=== PATIENT | female | born 1995 | race Caucasian/White ===

== ENCOUNTER 2024-12-30 09:52 | Emergency (ER) | payer OTHER, SELFPAY ==
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
--- OUTSIDE RECORDS SUMMARY | 2024-11-27 15:40 | XMS_ITS | Encounter Summary ---
Author Organization [facility] Address [address] [place] [address] Care Team Providers Care Yarn Finisher Name Role Phone Elsewhere, Pcp Primary Care Provider Unavailabl e Reason for Visit * Reason Comments Med Refill Patient states that she takes 100 mg Progestrone suppositories in her previous pregnancies to prevent miscarriage. She has recently moved here from [place] and is struggling to set up care. 4weeks and 4 days . Encounter Details Date Type Department Care Team ([facility] st Contact Info) Description 11/27/2024 3:40 PM CDT - 11/27/2024 5:03 PM CDT Emergency [facility] [address] [place] [address] [phone] Sofya Mckay, SADIE, C.N.P. [address] [place] [address] [phone] Issue Renewal Prescription (Primary Dx) Discharge Disposition: Home or Self Care Social History Tobacco Use Types Packs/Day Years Used Date Smoking Tobacco: Former Cigarettes Passive Smoke Exposure: Past Smokeless Tobacco: Never Tobacco Cessation:Counseling Given: Not Answered Alcohol Use Standard Drinks/Week Comments Yes 0 (1 standard drink = 0.6 oz pur e alcohol) Dental Answer Date Recorded Dental: Regular Dentist Unknown 05/31/20 24 Comments Yes Sex and Gender Information Value Date Recorded Sex Assigned at Not on file Legal Sex Female 12:37 PM CDT Gender Identity Not on file Sexual Orientation Not on file documented as of this encounter Last Filed Vital Signs Vital Sign Reading Time Taken Comments Blood Pressure 132/73 11/27/2024 3:45 PM CDT Pulse 96 11/27/2024 3:43 PM CDT Temperature 36.4 C (97.5 F) 11/27/2024 3:43 PM CDT Respiratory Rate 19 11/27/2024 3:43 PM CDT Oxygen Saturation 97% 11/27/2024 3:43 PM CDT Inhaled Oxygen Concentration - - Weight 84.9 kg (187 lb 3.2 oz) 11/27/2024 3:39 P M CDT Height - - Body Mass Index - - documented in this encounter Discharge Instructions * Discharge Instructions* Sofya Mckay APRN, C.N.P. - 11/27/2024 4:35 PM CDT [facility] discussed and set up today in clinic your appointment is scheduled for 11/29/2024 at 3:30 p.m. documented in this encounter Medications at Time of Discharge lisdexamfetamine (Vyvanse) 60 mg capsule take 1 capsule by mouth once a day in the morning. 11/22/2024 PNV 24-espw-zujdzotgi ate-dha 29 mg iron-1 mg -350 mg Take 1 tablet by mouth daily. 06/16/2019 documented as of this encounter Progress Notes * Sofya Mckay APRN, C.N.P. - 11/27/2024 4:48 PM CDT SUBJECTIVE CHIEF COMPLAINT / REASON FOR VISIT Med Refill (Patient states that she takes 100 mg Progestrone suppositories in her previous pregnancies to prevent miscarriage. She has recently moved here from [place] and is struggling to set up care. 4weeks and 4 days . ) HISTORY OF PRESENT ILLNESS Concha Franklin is a 29 y.o. female who presents for evaluation of progesterone suppositories to sustain . Patient has done 5-6 home test. All of which have come back positive. Patient has had history of 6 miscarriages 3 live births ages 5, 4, and 2 year old. Reports neededto have progesterone suppositories for the entire 1st trimester to sustain pregnancies. Presents tourgent care today as she is not able to get into her 1st OB appointment until January 02. In an attempt to receive a prescription for progesterone suppositories. Portions of the patient's history were reviewed and updated as appropriate: Allergies, current medications, medical history. REVIEW OF SYSTEMS Pertinent items are noted in HPI; all other review of systems was negative. OBJECTIVE VITAL SIGNS BP 132/73 Pulse 96 Temp 36.4 ??C (Temporal) Resp 19 Wt 84.9 kg LMP 10/26/2024 (Exact Date) SpO2 97% No PHYSICAL EXAMINATION Vitals and nursing note reviewed. Constitutional General: She is not in acute distress. Appearance: Normal appearance. HENT Head: Normocephalic. Cardiovascular Rate and Rhythm: Normal rate. Musculoskeletal General: Normal range of motion. Skin General: Skin is warm and dry. Neurological Mental Status: She is alert. Psychiatric Mood and Affect: Mood normal. ASSESSMENT / PLAN #1 Issue Renewal Prescription Pleasant 29-year-old female presenting for quantitative progesterone level in the hopes of receiving a prescription for compounded progesterone suppository to sustain . Informed patient that unfortunately this is outside the scope of an urgent care walk-in clinic. We did obtain a release of information for [facility] in [place]. Attempted to receive information. I did speak with Dr. Chowdhury's nurse Tiara who states Dr. Chowdhury did prescribe compounded progesterone suppositories when the quantitative progesterone fell below 20 4 the entire 1st trimester. In clinic today we did set up an appointment with [facility] here in [place] for 11/29/2024 at 3:30 p.m. with [facility] nurse practitioner Faustina Harris. Patient is receptive andappreciative. No further questions or concerns prior to discharge. Follow up as discussed and reviewed in AVS. Discharged from [facility] in stable condition. Sofya Mckay APRN, C.N.P. 11/27/24 [id number] documented in this encounter Plan of Treatment Not on file documented as of this encounter Visit Diagnoses Diagnosis Issue Renewal Prescription- Primary documented in this encounter Care Teams Yarn Finisher Relationship Specialty Start Date End Date Elsewhere, Pcp PCP - General Internal Medicine 11/27/24 documented as of this encounter
--- OUTSIDE RECORDS SUMMARY | 2024-11-28 13:30 | XMS_ITS | Encounter Summary ---
Author Organization [facility] IT developersW[facility] CenterCultureMap Address [address], [place] [address] Care Team Providers Care Motion Picture Narrator Name Role Phone Needs Pcp, Assignment Primary Care Provider [phone] Reason for Visit * Reason Comments CONSULT Encounter Details Date Type Department Care Team (Late st Contact Info) Description 11/28/2024 1:30 PM CDT Office Visit [place] [id number] Obstetrics/Gynecolog y [address] [place] [place] [address] Edie Lamb MD [address] [facility] [address] [place], [place] [id number] Bleeding in early (Primary Dx); History of miscarriage, currently Social History Tobacco Use Types Packs/Day Years Used Date Smoking Tobacco: Former Cigarettes Tobacco Cessation:Counseling Given: Not Answered Alcohol Use Standard Drinks/Week Comments Not Currently 0 (1 standard drink = 0.6 oz pur e alcohol) PHQ-2 Answer Date Recorded PHQ-2 Score 0 11/28/2024 Comments Yes Sex and Gender Information Value Date Recorded Sex Assigned at Not on file Legal Sex Female 9:33 AM CDT Gender Identity Not on file Sexual Orientation Not on file documented as of this encounter Last Filed Vital Signs Vital Sign Reading Time Taken Comments Blood Pressure 107/67 11/28/2024 1:30 PM CDT Pulse 80 11/28/2024 1:30 PM CDT Temperature - - Respiratory Rate - - Oxygen Saturation - - Inhaled Oxygen Concentration - - Weight 84.6 kg (186 lb 9.6 oz) 11/28/2024 1:30 P M CDT Height - - Body Mass Index - - documented in this encounter Patient Instructions * Patient Instructions* Edie Lamb MD - 11/28/2024 1:30 PM CDT Woody Murphy speaking with you at your appointment today! Recommendations: Take vitamin daily. Labs today - HCG, blood type, progesterone level Pending HCG results, either repeat HCG in 2-3 days or proceed with ultrasound as soon as able. Once viability confirmed, initiate progesterone if desired. Once dating confirmed, return for complete OB intake visit at 10 weeks. Please contact the clinic prior to the above for return of bleeding, severe pain or related concerns, or as helpful. I anticipate that your results should return in 2-3 days. Your results will be forwarded to your Mychart when available. If your Mychart is not active or pending at that time, we will reach out by telephone. Please contact me with any questions -- [phone]. Mike wishesEdie MD 7:45 PM 11/28/2024 documented in this encounter Progress Notes * Edie Lamb MD - 11/28/2024 1:30 PM CDT [facility] Obstetrics and Gynecology New Patient Visit Concha Franklin [id number] Reason for visit: Bleeding in early HPI: Concha Franklin is a 29 y.o. who presents to [facility] for early confirmation complicated by recent light vaginal bleeding. Patient is a new patient to [facility] the past 11 months. Wanting to establish care today with Jacky [facility]. Accompanied today by , Kilo, and 3 children. Using natural family planning for contraception. Cycles are reportedly irregular, but well tracked. LMP 10/26/24. Certain LMP. [place] different this past week thus took home test 3 days ago - positive x multiple tests. Couple was not planning , yet accepting. Light vaginal spotting noted this past weekend x 1 day, but without additional bleeding in past 3 days. Believes she is Rh positive, but no records available. 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 Started on early vaginal progesterone suppository by outsideOB provider in last 3 pregnancies, resulting in successful term vaginal delivery with each. Given complex history of miscarriages and spotting, requesting early start of progesterone this upon confirmation of and progesterone level check today. Per report, has used progesterone vaginal suppositories 100 mg nightly in first trimester with previous pregnancies. Past medical history otherwise updated in [facility] with patient assistance. [facility]. 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 LMP Patient's last menstrual period was 10/26/2024 (exact date). STI H/o: Denied Pap smear: Uncertain Monogamous with partner, . Contraception: Natural family planning The medical, surgical, social and family histories were reviewed and upated. Meds: lisdexamfetamine (VYVANSE) 60 MG capsule, Take 1 Capsule (60 mg) by mouth every morning., Disp: , Rfl: vitamin-ferrous fumarate-folic acid (PRENATALPLUS) 27-1 MG tablet, Take 1 Tablet by mouth daily., Disp: , Rfl: No current facility-administered medications on file as of 11/28/2024. Review of Systems Complete Review of Systems is negative, unless noted in HPI Exam: BP 107/67 (BP Location: Right Arm, BP Cuff Size: Regular - Long) Pulse 80 Wt 186 lb 9.6 oz (84.6 kg) LMP 10/26/2024 (Exact Date) Gen: pleasant female, A&Ox3, NAD, responds to questions appropriately Psych: mood stable. HEENT: grossly unremarkable. Abd: soft, non-distended, non-tender. Pelvic: deferred Labs: None available No outside records available today. Patient previously cared for at [facility] in [place], [place]. Record release signed for record transfer. Imaging: Not applicable Assessment: Concha Franklin is a 29 y.o. at 4w5d by LMP, yet irregular menses, with early spotting. Reported historical Rh positive status, will confirm. Plan: Labs today, HCG, blood type, progesterone level per patient request. Discussed with patient that pending HCG level we will either recommend serial HCGs (if initial HCG is low) and/or ultrasound once gestational age suspected to be greater than 6-8 weeks. Patient requesting prescription for vaginal progesterone today. Discussed that we can consider thisafter has been confirmed. Once viability confirmed return to clinic for complete OB intake at approximately 10 weeks. Sooner if concerns arise. Patient declines additional questions today. Bleeding precautions reviewed. 30 minutes spent with patient in history taking, record and chart review, counseling, examination, treatment planning and documentation, >50% in counseling. Edie Lamb MD 11/28/2024, 2:13 PM documented in this encounter Plan of Treatment Upcoming Encounters Date Type Department Care Team (Late st Contact Info) Description 01/02/2025 11:00 AM CDT Appointment [place] [facility] Obstetrics/Gynecology [facility] [place] [place] [address] Justin Major MD [address] [facility] [address] [place] [address] documented as of this encounter Results * Progesterone Adult (11/28/2024 2:34 PM CDT) Progesterone, Adult 27.5 ng/mL 11/29/2024 11:39 AM CDT [facility] DesignAD[facility] MEXICOIdentica Holdings [facility] Blood Venipuncture / Unknown 11/28/2024 2:34 PM CDT 11/28/2024 2:34 PM CDT [facility] - 11/29/2024 11:39 AM CDT Expected values for menstruating females Follicular Phase: <0.1-0.3 ng/mL Luteal Phase: 1.2-15.9 ng/mL Expected values for females 1st Trimester (4-12 weeks): 2.8-147.3 ng/mL 2nd Trimester (13-24 weeks): 22.5-95.3 ng/mL 3rd Trimester (25-36 weeks): 27.9-242.5 ng/mL Edie Lamb MD LAB_1 Final Result Performing Organization Address [facility] Co de Phone Number [facility] [address] * Blood Type (11/28/2024 2:34 PM CDT) ABO A 11/28/2024 8:56 PM CDT [facility] Positive 11/28/2024 8:56 PM CDT [facility] Blood Venipuncture / Unknown 11/28/2024 2:34 PM CDT 11/28/2024 2:34 PM CDT Edie Lamb MD LAB_1 Final Result Performing Organization Address [facility] de Phone Number [facility] [address] * (ABNORMAL) HCG, Quantitative, Serum (11/28/2024 2:34 PM CDT) HCG, Quantitative 176(H) <=4 mIU/mL 8:41 PM CDT [facility] Blood Venipuncture / Unknown 11/28/2024 2:34 PM CDT 11/28/2024 2:34 PM CDT Narrative [facility] - 11/28/2024 8:41 PM CDT Expected ranges Negative: <5 mIU/mL Indeterminate: 5-25 mIU/mL Positive: >25 mIU/mL Suggest repeat testing of indeterminate result in 72 hours. Edie Lamb MD LAB_1 Final Result Performing Organization Address [facility] Co de Phone Number [facility] [address] documented in this encounter Visit Diagnoses Diagnosis Bleeding in early - Primary Unspecified hemorrhage in early , unspecified as to episode of care History of miscarriage, currently documented in this encounter Care Teams Motion Picture Narrator Relationship Specialty Start Date End Date Needs Pcp, [place] [address] PCP - General 11/27/24 documented as of this encounter
--- OUTSIDE RECORDS SUMMARY | 2024-11-28 14:30 | XMS_ITS | Encounter Summary ---
Author Organization [facility] Address [address], [place] [address] Care Team Providers Care Hypercil Core Transformer Assembler Name Role Phone Needs Pcp, Assignment Primary Care Provider [phone]- [phone] Encounter Details Date Type Department Care Team (Late Contact Info) Description 11/28/2024 2:30 PM CDT Lab Visit [place] [facility] [address] [facility] [place] [address] Bleeding in early ; History of miscarriage, currently Social History Tobacco Use Types Packs/Day Years Used Date Smoking Tobacco: Former Cigarettes Alcohol Use Standard Drinks/Week Comments Not Currently 0 (1 standard drink = 0.6 oz pur e alcohol) PHQ-2 Answer Date Recorded PHQ-2 Score 0 11/28/2024 Comments Yes Sex and Gender Information Value Date Recorded Sex Assigned at Not on file Legal Sex Female 9:33 AM CDT Gender Identity Not on file Sexual Orientation Not on file documented as of this encounter Plan of Treatment Upcoming Encounters Date Type Department Care Team (Late Contact Info) Description 01/02/2025 11:00 AM CDT Appointment [place] Obstetrics/Gynecology [address] [facility] [place] [address] Justin Major MD [address] [facility] [address] [place] [address] documented as of this encounter Procedures Procedure Name Priority Date/Time Associated Diagnosis Comments PROGESTERONE ADULT Routine 11/28/2024 2: 34 PM CDT Bleeding in early History of miscarriage, currently BLOOD TYPE Routine 11/28/2024 2:34 PM CDT Bleeding in early History of miscarriage, currently HCG, QUANTITATIVE, SERUM Same Day 11/28/2024 2:34 PM CDT Bleeding in early History of miscarriage, currently documented in this encounter Results * Progesterone Adult (11/28/2024 2:34 PM CDT) Progesterone, Adult 27.5 ng/mL 11/29/2024 11:39 AM CDT [email or web address] Blood Venipuncture / Unknown 11/28/2024 2:34 PM CDT 11/28/2024 2:34 PM CDT Narrative [email or web address] [place] [facility] - 11/29/2024 11:39 AM CDT Expected values for menstruating females Follicular Phase: <0.1-0.3 ng/mL Luteal Phase: 1.2-15.9 ng/mL Expected values for females 1st Trimester (4-12 weeks): 2.8-147.3 ng/mL 2nd Trimester (13-24 weeks): 22.5-95.3 ng/mL 3rd Trimester (25-36 weeks): 27.9-242.5 ng/mL us Edie Lamb MD LAB_1 Final Result Performing Organization Address City/State/[facility] Co de Phone Number [facility] [address] * Blood Type (11/28/2024 2:34 PM CDT) ABO A 11/28/2024 8:56 PM CDT [facility] Positive 11/28/2024 8:56 PM CDT [facility] Blood Venipuncture / Unknown 11/28/2024 2:34 PM CDT 11/28/2024 2:34 PM CDT us Edie Lamb MD LAB_1 Final Result Performing Organization Address [facility] de Phone Number [facility] [address] [place], [place] [phone] [place] [address] * (ABNORMAL) HCG, Quantitative, Serum (11/28/2024 2:34 PM CDT) HCG, Quantitative 176(H) <=4 mIU/mL 025 8:41 PM CDT [facility] Blood Venipuncture / Unknown 11/28/2024 2:34 PM CDT 11/28/2024 2:34 PM CDT Narrative [facility] - 11/28/2024 8:41 PM CDT Expected ranges Negative: <5 mIU/mL Indeterminate: 5-25 mIU/mL Positive: >25 mIU/mL Suggest repeat testing of indeterminate result in 72 hours. us Edie Lamb MD LAB_1 Final Result Performing Organization Address [facility] Co de Phone Number [facility] [place], [place] [id number] [place] [address] documented in this encounter Visit Diagnoses Diagnosis Bleeding in early Unspecified hemorrhage in early , unspecified as to episode of care History of miscarriage, currently documented in this encounter Care Teams Hypercil Core Transformer Assembler Relationship Specialty Start Date [place] [address] PCP - General 11/27/24 documented as of this encounter
--- OUTSIDE RECORDS SUMMARY | 2024-11-30 08:40 | XMS_ITS | Encounter Summary ---
Author Organization [facility] Address [address], [place] [address] Care Team Providers Care Emergency Medicine Physician Assistant Name Role Phone Needs Pcp, Assignment Primary Care Provider [phone]- [phone] Encounter Details Date Type Department Care Team (Late Contact Info) Description 11/30/2024 8:40 AM CDT Lab Visit [place] [facility] [address] [place] [address] Bleeding in early ; History of miscarriage, [...] AM CDT Appointment [place] [facility] Obstetrics/Gynecology [facility] [facility] [place] [address] Justin Major MD [address] [facility] [address] [place] [address] documented as of this encounter Procedures Procedure Name Priority Date/Time Associated Diagnosis Comments HCG, QUANTITATIVE, SERUM Same Day 11/30/2024 8:47 AM CDT Bleeding in early History of miscarriage, currently documented in this encounter Results * (ABNORMAL) HCG, Quantitative, Serum (11/30/2024 8:47 AM CDT) HCG, Quantitative 297(H) <=4 mIU/mL 025 4:38 PM CDT [facility] Blood Venipuncture / Unknown 11/30/2024 8:47 AM CDT 11/30/2024 8:47 AM CDT Narrative [facility] - 11/30/2024 4:38 PM CDT Expected ranges Negative: <5 mIU/mL Indeterminate: 5-25 mIU/mL Positive: >25 mIU/mL Suggest repeat testing of indeterminate result in 72 hours. us Edie Lamb MD LAB_1 Final Result [facility] [address] [place], [place] [address] documented in this encounter Visit Diagnoses Diagnosis Bleeding in early Unspecified hemorrhage in early , unspecified as to episode of care History of miscarriage, currently documented in this encounter Care Teams Emergency Medicine Physician Assistant Relationship Specialty Start Date End [place] [address] PCP - General 11/27/24 documented as of this encounter
--- OUTSIDE RECORDS SUMMARY | 2024-12-06 07:20 | XMS_ITS | Encounter Summary ---
Author Organization [facility] Address [address], [place] [address] Care Team Providers Care Certified Fire Investigator Name Role Phone Needs Pcp, Assignment Primary Care Provider [phone]- [phone] Encounter Details Date Type Department Care Team (Late Contact Info) Description 12/06/2024 7:20 AM CDT Lab Visit [place] [facility] [address] [facility] [place] [address] Bleeding in early (Primary Dx); History of [...] AM CDT Appointment [place] [facility] Obstetrics/Gynecology [address] [facility] [place] [address] Justin Major MD [address] [facility] [address] [place] [address] documented as of this encounter Procedures Procedure Name Priority Date/Time Associated Diagnosis Comments EXTRA LIGHT GREEN TUBE Routine 12/06/2024 7:37 AM CDT Bleeding in early HCG, QUANTITATIVE, SERUM Same Day 12/06/2024 7:37 AM CDT Bleeding in early History of miscarriage, currently documented in this encounter Results * (ABNORMAL) HCG, Quantitative, Serum (12/06/2024 7:37 AM CDT) HCG, Quantitative 1,940(H) <=4 mIU/mL 12/06/2024 6:21 PM CDT [facility] Blood Venipuncture / Unknown 12/06/2024 7:37 AM CDT 12/06/2024 8:29 AM CDT Narrative [facility] - 12/06/2024 6:21 PM CDT Expected ranges Negative: <5 mIU/mL Indeterminate: 5-25 mIU/mL Positive: >25 mIU/mL Suggest repeat testing of indeterminate result in 72 hours. us Edie Lamb MD LAB_1 Final Result Performing Organization Address City/[facility]/ZIP Co de Phone Number [facility] [address] [place] [address], [facility] * Extra Light Green Tube (12/06/2024 7:37 AM CDT) Extra Light Green Tube Drawn Specimen will be held for 5 days 12/06/2024 9:00 AM CDT [place] [facility] Blood Venipuncture / Unknown 12/06/2024 7:37 AM CDT 12/06/2024 7:38 AM CDT us Edie Lamb MD LAB_1 Final Result [place] [facility] [address] [place] [address], [facility] documented in this encounter Visit Diagnoses Diagnosis Bleeding in early - Primary Unspecified hemorrhage in early , unspecified as to episode of care History of miscarriage, currently documented in this encounter Care Teams Certified Fire Investigator Relationship Specialty Start Date End Date Needs Pcp, [place] [address] PCP - General 11/27/24 documented as of this encounter
--- OUTSIDE RECORDS SUMMARY | 2024-12-13 13:15 | XMS_ITS | Encounter Summary ---
Author Organization [facility] Address [address], [place] [address] Care Team Providers Care Library Technician Name Role Phone Needs Pcp, Assignment Primary Care Provider [phone] Reason for Visit * Procedure/Equipment (Routine) - Incomplete Specialty Diagnoses / Procedures Referred By Contac t Referred To Contact Diagnoses Bleeding in early History of miscarriage, currently Procedures US OB <14 Weeks W EV Single Edie Lamb MD [facility] [address] [place] [address] Phone: tel: fax: Referral ID Status Reason Start Date Expiration Date V isits Requested Visits Authorized [id number] Incomplete 12/13/2024 03/14/2026 1 1 Encounter Details Date Type Department Care Team (Latest Contact Info) Description 12/13/2024 1:15 PM CDT Ancillary Procedure [place] [address] Ultrasound [facility]5 [facility] [place] [address] Edie Lamb MD [address] [facility] [address] [place], [place] [address] Bleeding in early ; History of miscarriage, [...] AM CDT Appointment [place] [facility]15 Obstetrics/Gynecology [address] [facility]. [place] [address] Justin Major MD [address] [facility] [address] [place] [address] documented as of this encounter Procedures Procedure Name Priority Date/Time Associated Diagnosis Comments US OB <14 WEEKS W EV SINGLE Routine 12/13/2024 1:43 PM CDT Bleeding in early History of miscarriage, currently documented in this encounter Results * US OB <14 Weeks W EV Single (12/13/2024 1:43 PM CDT) Anatomical Region Laterality Modality Pelvis Ultrasound 12/13/2024 1:13 PM CDT Impressions 12/13/2024 3:23 PM CDT 1. Single intrauterine fetus with cardiac activity, estimated gestational age 6w0d. 2. Small subchorionic hemorrhage measuring 12 x 8 x 7 mm. Narrative 12/13/2024 3:23 PM CDT COMPARISON: None TECHNIQUE: Transabdominal and transvaginal imaging was performed. FINDINGS: Gestational sac: Intrauterine gestational sac containing a single fetus and yolk sac. Small subchorionic hemorrhage measuring 12 x 8 x 7 mm Kinross-rump length measures 0.3 cm, corresponding to 6w0d gestational age. Gestational sac location: Normal SIMBA 08/08/2025. Embryonic/ cardiac activity is identified at 109 bpm. Right Ovary: Measures 2.7 x 2.0 x 2.4 cm and appears unremarkable. Left Ovary: Measures 3.5 x 2.0 x 2.3 cm and contains a probable corpus luteum. No suspicious adnexal masses. Free Fluid: No significant free fluid. GA by LMP Irregular: 6w6d GA by Prior US: n/a GA by today's US: 6w0d SIMBA by today's US: 08/08/2025 Procedure Note Gil Case MD - 12/13/2024 COMPARISON: None TECHNIQUE: Transabdominal and transvaginal imaging was performed. FINDINGS: Gestational sac: Intrauterine gestational sac containing a single fetusand yolk sac. Small subchorionic hemorrhage measuring 12 x 8 x 7 mm Kinross-rump length measures 0.3 cm, corresponding to 6w0d gestational age. Gestational sac location: Normal SIMBA 08/08/2025. Embryonic/ cardiac activity is identified at 109 bpm. Right Ovary: Measures 2.7 x 2.0 x 2.4 cm and appears unremarkable. Left Ovary: Measures 3.5 x 2.0 x 2.3 cm and contains a probable corpusluteum. No suspicious adnexal masses. Free Fluid: No significant free fluid. GA by LMP Irregular: 6w6d GA by Prior US: n/a GA by today's US: 6w0d SIMBA by today's US: 08/08/2025 IMPRESSION 1. Single intrauterine fetus with cardiac activity, estimated gestationalage 6w0d. 2. Small subchorionic hemorrhage measuring 12 x 8 x 7 mm. us Edie Lamb MD [facility] US Final Result documented in this encounter Visit Diagnoses Diagnosis Bleeding in early Unspecified hemorrhage in early , unspecified as to episode of care History of miscarriage, currently documented in this encounter Care Teams Library Technician Relationship Specialty Start Date End Date Needs Pcp, [place] [address] PCP - General 11/27/24 documented as of this encounter
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
--- OUTSIDE RECORDS SUMMARY | 2024-12-26 09:30 | XMS_ITS | Encounter Summary ---
[facility] Address [address], [place] [address] Care Team Providers Care Skin Grader Name Role Phone Needs Pcp, Assignment Primary Care Provider [phone] Reason for Visit * Procedure/Equipment (Routine) - Incomplete Specialty Diagnoses / Procedures Referred By Contac t Referred To Contact Diagnoses Missed menses Procedures US OB <14 Weeks w EV Single Follow Up Growth US OB <14 Weeks W EV Single Justin Major MD [facility] [address] [place] [address] Phone: tel: fax: Referral ID Status Reason Start Date Expiration Date V isits Requested Visits Authorized [id number] Incomplete 12/26/2024 03/27/2026 1 1 Encounter Details Date Type Department Care Team (Late st Contact Info) Description 12/26/2024 9:30 AM CDT Ancillary Procedure [place] [address] Ultrasound [address] [facility] [place] [address] Justin Major MD [address] [facility] [address] [place], [place] [address] Missed menses Social History Tobacco Use Types Packs/Day Years Used Date Smoking Tobacco: Former Cigarettes Passive Smoke Exposure: Past Smokeless Tobacco: Never Comments:Quit: ~ 2019 Alcohol Use Standard Drinks/Week [...] Not on file Not o n file Mobile Qa Tester Not on file Not on file Not on file documented as of this encounter Plan of Treatment Upcoming Encounters Date Type Department Care Team (Late st Contact Info) Description 01/02/2025 11:00 AM CDT Appointment [place] [address] Obstetrics/Gynecology [address] [facility] [place] [address] Justin Major MD [address] [facility] [address] [place] [address] documented as of this encounter Procedures Procedure Name Priority Date/Time Associated Diagnosis Comments US OB < 14 WEEKS W EV SINGLE FOLLOW UP GROWTH Routine 12/26/2024 10:07 AM CDT Missed menses documented in this encounter Results * US [...] imaging was performed. FINDINGS: Gestational sac: Unremarkable. [place]-rump length measures 1.8 cm, corresponding to 8w2d [...] imaging was performed. FINDINGS: Gestational sac: Unremarkable. [place]-rump length measures 1.8 cm, corresponding to 8w2d [...] ultrasound EDC of08/05/2025. us Justin Major MD [facility] Final Result documented in this encounter Visit Diagnoses Diagnosis Missed menses Absence of menstruation documented in this encounter Care Teams Skin Grader Relationship Specialty Start Date End Date Needs Pcp, [place] [address] PCP - General 11/27/24 documented as of this encounter
[2024-12-30 10:01] VITALS: BP 109/75; PULSE 76; RESP 18; TEMP 36.4; O2SAT 98; BMI 37.8
--- NOTE | 2024-12-30 10:19 | CRLHL7_ITS ---
For Patients: As a result of the Cures Act, medical imaging exams and procedure reports are released immediately into your electronic medical record. You may view this report before your referring provider. If you have questions, please contact your health care provider. INDICATION: Vaginal bleeding TECHNIQUE: Real-time garcia-scale imaging of the pelvis was performed. FINDINGS: Sonographic imaging demonstrates a single living intrauterine gestation. The embryo demonstrates a regular cardiac rate measuring 167 beats per minute. The embryo`s crown-rump length measurement of 2.1 cm corresponds to a gestational age of 8 weeks 5 days with a sonographic due date of 08/06/2025. There is a normal-appearing yolk sac. Small subchorionic hemorrhage measuring 3.3 x 0.8 x 0.9 centimeters. Ovaries are unremarkable probable corpus luteum cyst on the left measuring 2.4 centimeters blood flow to both ovaries. IMPRESSION: Early intrauterine gestation. Gestational age calculated at 8 weeks 5 days with a sonographic due date of 08/06/2025. Small subchorionic hemorrhage measuring 3.3 x 0.8 x 0.9 centimeters. Dictated by Shauna Walton MD @ 12/30/2024 12:04:28 PM (Electronically Signed)
--- NOTE | 2024-12-30 10:20 | ED.GENADULT ---
HPI - General Adult General Chief complaint: Vaginal Bleeding Stated complaint: 9 Weeks - Bleeding Time Seen by Provider: 12/30/24 09:54 History of Present Illness HPI narrative: This 29-year-old female comes in stating that she is about 9 weeks and now has had a small amount of vaginal bleeding with some cramping. She has a history of multiple miscarriages. She is and reports that she is taking progesterone and since doing this she has been able to maintain . She normally doctors in a different facility but heard good things here. We do not have any prior records in our system. Related Data Home Medications ?Medication ?Instructions ?Recorded ?Confirmed levomefolate-algal oil 1 cap PO DAILY 12/30/24 12/30/24 vit no.95-ferrous 1 tab PO DAILY 12/30/24 12/30/24 fumarate 28 mg-folic acid 800 mcg tablet () progesterone micronized 100 mg vaginal HS 12/30/24 12/30/24 Allergies Allergy/AdvReac Type Severity Reaction Status Date / Time sulfamethoxazole (From Allergy Severe Hives Verified 12/30/24 10:04 Bactrim) trimethoprim (From Bactrim) Allergy Severe Hives Verified 12/30/24 10:04 Review of Systems Status of ROS: Reports: 10 or more systems reviewed and unremarkable except as noted in History and below Narrative: Constitutional: No fevers, no weight gain or loss. Eyes: No discharge. No vision changes. HENT: No congestion, no sore throat, no ear pain. Cardiovascular: No chest pain, no palpitations. Respiratory: No shortness of breath, no wheezes, no cough. Gastrointestinal: No vomiting, no diarrhea. Crampy abdominal pain. Genitourinary: No dysuria, no hematuria. Vaginal bleeding as described above. Musculoskeletal: Normal range of motion. Skin: No rashes, no pruritis. Neurological: No dizziness, weakness, sensory change, speech change. Endo/Heme/Allergies: No bruising or bleeding. No polydipsia. Pysch: no suicidality, no anxiety, no insomnia. All other systems reviewed and are negative. PFSH PFSH Social History Smoking Status: Former smoker How often do you have a drink containing alcohol: never AUDIT-C Alcohol total score: 0 Non-prescribed substance use: denies use Exam Narrative: Exam Narrative: Constitutional: Well-developed, well-nourished, no acute distress. HEENT: Normocephalic, atraumatic. Neck: Normal range of motion. Nontender. Supple. Heart: Intact distal pulses. Lungs: No chest discomfort. No wheezes, rhonchi, or rales. Abdomen: Nontender. Back: Normal range of motion. Extremities: Normal range of motion. No injury. Skin: Intact. No rash. Warm. No erythema or pallor. Neurologic: No altered sensation. No weakness. Alert and oriented. Psychiatric: No suicidality. No anxiety or depression. No insomnia. Nursing notes and vitals signs are reviewed. Const: Vital Signs, click to edit/add: Vital Signs - 24 hr 12/30/24 10:01 Temperature 97.5 F L Pulse Rate [Pulse Oximeter] 76 Respiratory Rate 18 Blood Pressure [Ri ght Upper Arm] 109/75 Pulse Oximetry 98 Oxygen Delivery Me thod Room Air Course Vital Signs Vital signs: Initial Vital Signs Temperature 97.5 F L 12/30/24 10:01 Temperature Source Temporal Artery Scan 12/30/24 10:01 Pulse Rate 76 12/30/24 10:01 Pulse Rhythm Regular 12/30/24 10:01 Respiratory Rate 18 12/30/24 10:01 Blood Pressure 109/75 12/30/24 10:01 Blood Pressure Mean 86 12/30/24 10:01 Blood Pressure Position Sitting 12/30/24 10:01 Pulse Oximetry 98 12/30/24 10:01 Oxygen Delivery Method Room Air 12/30/24 10:01 Vital Signs Temperature 97.5 F L 12/30/24 10:01 Pulse Rate 76 12/30/24 10:01 Respiratory Rate 18 12/30/24 10:01 Blood Pressure 109/75 12/30/24 10:01 Pulse Oximetry 98 12/30/24 10:01 Oxygen Delivery Method Room Air 12/30/24 10:01 Temperature 97.5 F L 12/30/24 10:01 Pulse Rate 76 12/30/24 10:01 Respiratory Rate 18 12/30/24 10:01 Blood Pressure 109/75 12/30/24 10:01 Pulse Oximetry 98 12/30/24 10:01 Oxygen Delivery Method Room Air 12/30/24 10:01 Medical Decision Making MDM Narrative Medical decision making narrative: This patient comes in with concern about her at 9 weeks gestation. She had some small amount of vaginal bleeding and has had some occasional cramping. An ultrasound is obtained which shows a normal intrauterine at 8 weeks 5 days gestation. There is a small subchorionic hemorrhage that likely accounts for her symptoms. The patient is okay to be discharged home and has follow-up plans with her primary physician. Discharge Plan Discharge Clinical Impression: Subchorionic hemorrhage in first trimester Patient Disposition: Home, Self-Care Condition: Stable Additional Instructions: Continue current plans. Follow up with OB Clinic as scheduled and needed. Return if worsening. Prescriptions: No Action PNV cmb#95-ferrous fumarate-FA [] 28 mg iron- 800 mcg tablet 1 tab PO DAILY progesterone micronized 100 mg vaginal HS levomefolate-algal oil [L-Methylfolate Forte] 1 cap PO DAILY Follow Up/Referrals: Justin Major MD [Primary Care Provider, CYBERATHLETE] Stand Alone Forms: GoodGuide Info Instructions
--- OUTSIDE RECORDS SUMMARY | 2024-12-30 11:10 | XMS_ITS | Encounter Summary ---
Author Organization [facility] Address [address] [place] [address] Care Team Providers Care Haul Truck Driver Name Role Phone Elsewhere, Pcp Primary Care Provider Unavailabl e Reason for Visit * Reason Onset Date Comments return phone call 11/27/2024 WINDOW GLAZIER HELPER Encounter Details Date Type Department Care Team (Latest Contact Info) Description 11/27/2024 Clinical Communication Department of Obstetrics and Gynecology in [place], [place] [address] [place] [phone] Faustina Harris, SADIE, C.N.P., M.S.N. [address] [place] [phone] return phone call (WINDOW GLAZIER HELPER) Social History Tobacco Use Types Packs/Day Years Used Date Smoking Tobacco: Former Cigarettes Passive Smoke Exposure: Past Smokeless Tobacco: Never Alcohol Use Standard Drinks/Week Comments Yes 0 [...] as of this encounter Plan of Treatment Not on file documented as of this encounter Visit Diagnoses Not on filedocumented in this encounter Care Teams Haul Truck Driver Relationship Specialty Start Date End Date Elsewhere, Pcp PCP - General Internal Medicine 11/27/24 documented as of this encounter
--- OUTSIDE RECORDS SUMMARY | 2024-12-30 11:10 | XMS_ITS | Encounter Summary ---
Author Organization [facility] Address [address] [address] Care Team Providers Care Account Retention Representative Name Role Phone Needs Pcp, Assignment Primary Care Provider [phone] Encounter Details Date Type Department Care Team (Late st Contact Info) Description 11/28/2024 Results Follow-Up [place] [id number] Obstetrics/Gynecology [address] [facility], [place] [phone] Edie Lamb MD 1515 [facility] [address] [place], [place] [phone] Social History Tobacco Use Types Packs/Day Years [...] on file documented as of this encounter Nursing Notes * Drea Leigh RN - 11/29/2024 9:31 AM CDT Clinician: Review and advise Patient/childcare administrator request: New medication Specific Request: Patient calling, reviewed message from Dr. Lea Zelaya as included below. She is requesting progesterone vaginal suppositories. I've had this with all my other pregnancies. Dr. Lamb: consider progesterone vaginal supps for first 10-12 weeks of per patient request. Patient requires/requests a return call after Provider has responded. Patrick Kern, Your HCG confirms you are , but VERY early. HCG is only 176. Based on this information I would recommend you repeat your HCG again in 2-3 days to ensure it is rising. I have placed the order for you to schedule the lab only visit as discussed - [phone]. I will forward the rest of your labs once they are available. Best wishes, Edie Lamb MD 8:55 PM 11/28/2024 documented in this encounter Plan of Treatment Upcoming Encounters Date Type Department Care Team (Late st Contact Info) Description 01/02/2025 11:00 AM CDT Appointment [place] [facility]5 Obstetrics/Gynecology [address] [facility] [place], [place] [phone] Justin Major MD 1515 [facility] [address] [place], [place] [phone] documented as of this encounter Results * (ABNORMAL) HCG, Quantitative, Serum (11/30/2024 8:47 AM CDT) HCG, Quantitative 297(H) <=4 mIU/mL 025 4:38 PM CDT [facility] Blood Venipuncture / Unknown 11/30/2024 8:47 AM CDT 11/30/2024 8:47 AM CDT Narrative [facility] - 11/30/2024 4:38 PM CDT Expected ranges Negative: <5 mIU/mL Indeterminate: 5-25 mIU/mL Positive: >25 mIU/mL Suggest repeat testing of indeterminate result in 72 hours. us Edie Lamb MD LAB_1 Final Result [facility] [address] [place], [place] [phone] [place] [address] documented in this encounter Visit Diagnoses Diagnosis Bleeding in early - Primary Unspecified hemorrhage in early , unspecified as to episode of care History of miscarriage, currently documented in this encounter Care Teams Account Retention Representative Relationship Specialty Start Date End Date Needs Pcp, [place] [address] PCP - General 11/27/24 documented as of this encounter
--- OUTSIDE RECORDS SUMMARY | 2024-12-30 11:10 | XMS_ITS | Encounter Summary ---
Author Organization [facility] Address [address], [place] [address] Care Team Providers Care Senior Branch Manager Name Role Phone Needs Pcp, Assignment Primary Care Provider [phone] Encounter Details Date Type Department Care Team (Late st Contact Info) Description 11/30/2024 Notes/Orders [facility]5 Obstetrics/Gynecology [address] [facility], [place] [address] Edie Lamb MD 1515 [facility] [address] [place], [place] [phone] Bleeding in early (Primary Dx); History of [...] as of this encounter Progress Notes * Edie Lamb MD - 11/30/2024 10:58 AM CDT Please notify patient that overall her labs look good. No evidence of progesterone deficiency. Withthat said, I know she feels strongly about starting a progesterone treatment in early , see messages. Prescription for Prometrium sent to her pharmacy - 1 tablet PV nightly. Edie Lamb MD 11:00 AM 11/30/2024 documented in this encounter Plan of Treatment Upcoming Encounters Date Type Department Care Team (Late st Contact Info) Description 01/02/2025 11:00 AM CDT Appointment [facility]5 Obstetrics/Gyne[facility]. [place] [phone] Justin Major MD 1515 [facility] [address] [place] [address] documented as of this encounter Visit Diagnoses Diagnosis Bleeding in early - Primary Unspecified hemorrhage in early , unspecified as to episode of care History of miscarriage, currently documented in this encounter Care Teams Senior Branch Manager Relationship Specialty Start Date End Date Needs Pcp, Deniz [place], [place] [phone] PCP - General 11/27/24 documented as of this encounter
--- OUTSIDE RECORDS SUMMARY | 2024-12-30 11:10 | XMS_ITS | Encounter Summary ---
Author Organization [facility] Address [address], [place] [address] Care Team Providers Care Refrigerator Assembler Name Role Phone Needs Pcp, Assignment Primary Care Provider [phone] Reason for Visit * Reason Comments Plan of Care Encounter Details Date Type Department Care Team (Late st Contact Info) Description 11/30/2024 Telephone [facility]15 Obstetrics/Gynecology 15[address] [facility] [place] [address] Edie Lamb MD [address] [facility] [address] [place], [place] [phone] Plan of Care Social History Tobacco Use Types Packs/Day [...] as of this encounter Nursing Notes * Charlee Aleman RN - 11/30/2024 11:25 AM CDT Please notify patient that overall her labs look good. No evidence of progesterone deficiency. Withthat said, I know she feels strongly about starting a progesterone treatment in early , see messages. Prescription for Prometrium sent to her pharmacy - 1 tablet PV nightly. Edie Lamb MD 11:00 AM 11/30/2024 Message reviewed with pt. Pt states spoke with pharmacist at [facility] and was advised that if provider resent Rx as a compounded version that is compounded there, cost of Rx would be cheaper for pt. Did call pharmacy to verify- they will fax over information on suggestion for new Rx documented in this encounter Plan of Treatment Upcoming Encounters Date Type Department Care Team (Late st Contact Info) Description 01/02/2025 11:00 AM CDT Appointment [place] 1515 Obstetrics/Gynecology [address] [facility]. [place] [address] Justin Major MD 1515 [facility] [address] [place] [address] documented as of this encounter Visit Diagnoses Not on filedocumented in this encounter Care Teams Refrigerator Assembler Relationship Specialty Start Date End Date Needs Pcp, Deniz [place], [place] [phone] PCP - General 11/27/24 documented as of this encounter
--- OUTSIDE RECORDS SUMMARY | 2024-12-30 11:10 | XMS_ITS | Clinical Summary ---
Author Organization [facility] Address [address] [place] [address] Care Team Providers Care Harness Cleaner Name Role Phone Needs Pcp, Assignment Primary Care Provider [phone] Source Comments You are receiving this document as you are listed as the primary care provider,follow-up provider, or the patient has been referred to you for consultation.This is in compliance with the Medicare and[facility] [employer] EHR Incentive Program,which states Providers who transition their patient to another setting of careor provider of care or refers their patient to another provider of care shouldprovide summary care record for each transition of care or referral. [facility] Allergies Active Allergy Reactions Criticality Noted Date Comments Sulfamethoxazole-Trimethoprim Hives High 2024 Gluten Meal Diarrhea Medium 05/22/2019 Medications lisdexamfetamin e (VYVANSE) 60 MG capsule Take 1 Capsule (60 mg) by mouth every morning. 5 Active vitamin-ferrous fumarate-folic acid (PRENATALPLUS) 27-1 MG tablet Take 1 Tablet by mouth daily. Active L-Methylfolate 15 MG TABS Active progesterone (PROMETRIUM) 100 MG capsuleIndicati ons:Bleeding in early ,Histo ry of miscarriage, currently Insert 1 Capsule (100 mg) vaginally daily at bedtime. 30 Capsule 1 5 12/01/19 26 Active hydrOXYzine pamoate (VISTARIL) 25 MG capsule Take 1-2 Capsules (25-50 mg) by mouth three times a day as needed. 4 Active lisdexamfetamin e (VYVANSE) 40 MG capsule Take 1 Capsule (40 mg) by mouth. Active lisdexamfetamin e (VYVANSE) 60 MG capsule Take 1 Capsule (60 mg) by mouth daily. 5 Active lisdexamfetamin e (VYVANSE) 50 MG capsule Take 1 Capsule (50 mg) by mouth every morning. 4 Active lisdexamfetamin e (VYVANSE) 30 MG capsule Take 2 Capsules (60 mg) by mouth every morning. 5 Active Active Problems Problem Noted Date Diagnosed Date Bleeding in early 11/28/2024 History of miscarriage, currently 11/28 Comments Yes Encounters Date Type Department Care Team Description 12/26/2024 9:30 AM CDT Ancillary Procedure [place] 1515 [facility] [address] [facility] [place] [address] Justin Major MD Missed menses 12/14/2024 7:45 AM CDT [facility] [address] [facility] [place] [address] Nurse Intake 3, P6500 Ob Missed menses (Primary Dx) 12/13/2024 1:15 PM CDT Ancillary Procedure [place] [address] [place] [address] Edie Lamb MD Bleeding in early ; History of miscarriage, currently 12/13/2024 Notes/Orders [place] 1515 Obstetrics/Gynecolo gy [address] [place] [address] Edie Lamb MD Bleeding in early (Primary Dx); History of miscarriage, currently ; Bradycardic baseline heart rate 12/13/2024 Results Follow-Up [place] 1515 Obstetrics/Gynecolo gy [address] [place] [address] Edie Lamb MD 12/06/2024 7:20 AM CDT Lab Visit [place] [facility] [address] [place] [address] Bleeding in early (Primary Dx); History of miscarriage, currently 12/06/2024 Notes/Orders [place] 1515 Obstetrics/Gynecolo gy [address] [place] [address] Edie Lamb MD Bleeding in early (Primary Dx); History of miscarriage, currently 12/06/2024 Results Follow-Up [place] 1515 Obstetrics/Gynecolo gy [address] [place] [address] Edie Lamb MD 11/30/2024 8:40 AM CDT Lab Visit [place] [facility] [address] [place] [address] Bleeding in early ; History of miscarriage, currently 11/30/2024 Notes/Orders [place] 1515 Obstetrics/Gynecolo gy [address] [place] [address] Edie Lamb MD Bleeding in early (Primary Dx); History of miscarriage, currently 11/30/2024 Results Follow-Up [place] 1515 Obstetrics/Gynecolo gy [address] [place] [address] Edie Lamb MD 11/30/2024 Telephone [place] 1515 Obstetrics[facility]colo gy [address] [facility] [place] [address] Edie Lamb MD Plan of Care 11/30/2024 Notes/Orders [place] 1515 Obstetrics/Gynecolo gy [address] [place] [address] Edie Lamb MD Bleeding in early (Primary Dx); History of miscarriage, currently 11/28/2024 2:30 PM CDT Lab Visit [place] [facility] [address] [facility] [place] [address] Bleeding in early ; History of miscarriage, currently 11/28/2024 1:30 PM CDT [facility] [place] [facility] [address] [facility] [place] [address] Edie Lamb MD Bleeding in early (Primary Dx); History of miscarriage, currently 11/28/2024 Results [facility] [place] [facility] [address] [facility] [place] [address] Edie Lamb MD 11/27/[address] [place] [address] [address] [facility] [place] [address] Justin Major MD Appointment from Last 3 Months Immunizations Immunization Administration Dates Next Due 9vHPV (Gardasil 9) 01/12/2011,01/28/2009 Influenza, Unspecified Formulation 05/22/2020,,05/24/2019 Tdap 11/17/2019 Family History Medical History Relation Name Comments Hypertension Father Obesity Father gastic bypass Father Asthma Mother Bipolar Disorder Mother Dementia Mother Murphy Body lyric ntia Depression Mother Electric Shock treatment Mother Hypertension Mother Mental Disorder Mother Narcolepsy Mother Seizure Disorder Mother No Known Problems Daughter 1 2019 Diastasis Recti Daughter 2 2022 Alzheimer's Maternal Grandfather Cancer Maternal Grandfather Stroke Maternal Grandfather Alzheimer's Maternal Grandmother Diabetes Maternal Grandmother Rheum Arthritis Maternal Grandmother Hydrocephaly Nephew demise Heart Disease Paternal Grandfather triple bypass pnemounia Paternal Grandfather Blood Disease Paternal Grandmother infect ion from dentisit Dementia Paternal Grandmother Hypertension Sister Other Sister baby with hydro cephaly Kidney Disorder Son 2021 under height Son 2021 underweight Son 2021 Relation Name Status Comments Father Alive Mother Alive Brother Alive Daughter 1 2019 Alive Daughter 2 2022 Alive Maternal Grandfather Maternal Grandmother Alive Nephew demise Paternal Grandfather Paternal Grandmother Sister Alive Son 2021 Alive Social History Tobacco Use Types Packs/Day Years Used Date Smoking Tobacco: Former Cigarettes Passive Smoke Exposure: Past Smokeless Tobacco: Never Tobacco Cessation:Counseling Given: No Comments:Quit: ~ 2018 Alcohol Use Standard Drinks/Week Comments Not Currently [...] Not on file Not o n file Striper Spray Gun Not on file Not on file Not on file Last Filed Vital Signs Vital Sign Reading Time Taken Comments Blood Pressure 107/67 11/28/2024 1:30 PM CDT Pulse 80 11/28/2024 1:30 PM CDT Temperature - - Respiratory Rate - - Oxygen Saturation - - Inhaled Oxygen Concentration - - Weight 84.6 kg (186 lb 9.6 oz) 11/28/2024 1:30 P M CDT Height - - Body Mass Index - - Plan of Treatment Upcoming Encounters Date Type Department Care Team (Late st Contact Info) Description 01/02/2025 11:00 AM CDT Appointment [place] [facility] Obstetrics/Gynecology [address] [facility]. [place] [address] Justin Major MD 1515 [facility] [address] [place] [address] Health Maintenance Due Date Last Done Comments Cervical Cancer Screening Due 1996 Hep C Screening (Preventive Services) 1996 HIV Screening (Preventive Services) 2012 Adult Preventive Visit 01/26/2014 HepB Vaccine (1) 01/26/2015 COVID-19 Vaccine ( - 2023-2 5 season) 2024 Influenza Vaccine (Season Ended) 2025 05/22/2020, 05/22/2020, 05/24/2019 DTaP/Tdap/Td Vaccine (2 - Tdap) 11/16/2029 11/17/2019 Zoster/Shingles Vaccine (1 o f 2) 01/26/2046 HPV Vaccine Completed 01/12/2011, 01/28/2009 HepA Vaccine Aged Out No longer eligi ble based on patient's age to complete this topic Hib Vaccine Aged Out No longer eligi ble based on patient's age to complete this topic IPV (Polio) Vaccine Aged Out No longe r eligible based on patient's age to complete this topic MCV4 Vaccine Aged Out No longer eligi ble based on patient's age to complete this topic Meningococcal B Vaccine Aged Out No l onger eligible based on patient's age to complete this topic Pneumococcal Vaccine Aged Out No long er eligible based on patient's age to complete this topic Procedures Procedure Name Priority Date/Time Associated Diagnosis Comments US OB < 14 WEEKS W EV SINGLE FOLLOW UP GROWTH Routine 12/26/2024 10:07 AM CDT Missed menses US OB <14 WEEKS W EV SINGLE Routine 12/13/2024 1:43 PM CDT Bleeding in early History of miscarriage, currently HCG, QUANTITATIVE, SERUM Same Day 12/06/2024 7:37 AM CDT Bleeding in early History of miscarriage, currently EXTRA LIGHT GREEN TUBE Routine 12/06/2024 7:37 AM CDT Bleeding in early HCG, QUANTITATIVE, SERUM Same Day 11/30/2024 8:47 AM CDT Bleeding in early History of miscarriage, currently PROGESTERONE ADULT Routine 11/28/2024 2: 34 PM CDT Bleeding in early History of miscarriage, currently BLOOD TYPE Routine 11/28/2024 2:34 PM CDT Bleeding in early History of miscarriage, currently HCG, QUANTITATIVE, SERUM Same Day 11/28/2024 2:34 PM CDT Bleeding in early History of miscarriage, currently from Last 3 Months Results * US OB <14 Weeks w [...] imaging was performed. FINDINGS: Gestational sac: Unremarkable. Lantry-rump length measures 1.8 cm, corresponding to 8w2d [...] imaging was performed. FINDINGS: Gestational sac: Unremarkable. Lantry-rump length measures 1.8 cm, corresponding to 8w2d [...] intrauterine with cardiac motion, ultrasound gestationalage on 's study is 8 weeks and 2 days with ultrasound EDC of08/05/2025. us Justin Major MD [facility] US Final Result * US OB <14 Weeks W EV [...] measuring 12 x 8 x 7 mm Lantry-rump length measures 0.3 cm, corresponding to 6w0d [...] measuring 12 x 8 x 7 mm Lantry-rump length measures 0.3 cm, corresponding to 6w0d [...] measuring 12 x 8 x 7 mm. Edie Lamb MD [facility] Final Result * Extra Light Green Tube (12/06/2024 7:37 AM CDT) Pathologist [facility] Extra Light Green Tube Drawn Specimen will be held for 5 days 12/06/2024 9:00 AM CDT [facility] Blood Venipuncture / Unknown 12/06/2024 7:37 AM CDT 12/06/2024 7:38 AM CDT Edie Lamb MD LAB_1 Final Result Performing Organization Address [facility] de Phone Number [facility] [address] [place] [address], [facility] * (ABNORMAL) HCG, Quantitative, Serum (12/06/2024 7:37 AM CDT) Only the most recent of3 resultswithin the time period is included. [facility] HCG, Quantitative 1,940(H) <=4 mIU/mL 12/06/2024 6:21 PM CDT [facility] Blood Venipuncture / Unknown 12/06/2024 7:37 AM CDT 12/06/2024 8:29 AM CDT Narrative [facility] - 12/06/2024 6:21 PM CDT Expected ranges Negative: <5 mIU/mL Indeterminate: 5-25 mIU/mL Positive: >25 mIU/mL Suggest repeat testing of indeterminate result in 72 hours. us Edie Lamb MD LAB_1 Final Result Performing Organization Address City/[facility]/ZIP Co de Phone Number [facility] [address] [place], [place] [phone] [place] [address] * Progesterone Adult (11/28/2024 2:34 PM CDT) Progesterone, Adult 27.5 ng/mL 11/29/2024 11:39 AM CDT [facility] Blood Venipuncture / Unknown 11/28/2024 2:34 PM CDT 11/28/2024 2:34 PM CDT Narrative [facility] - 11/29/2024 11:39 AM CDT Expected values for menstruating females Follicular Phase: <0.1-0.3 ng/mL Luteal Phase: 1.2-15.9 ng/mL Expected values for females 1st Trimester (4-12 weeks): 2.8-147.3 ng/mL 2nd Trimester (13-24 weeks): 22.5-95.3 ng/mL 3rd Trimester (25-36 weeks): 27.9-242.5 ng/mL us Edie Lamb MD LAB_1 Final Result [facility] [id number] [place] [address] * Blood Type (11/28/2024 2:34 PM CDT) ABO A 11/28/2024 8:56 PM CDT [facility] RH Positive 11/28/2024 8:56 PM CDT [facility] Blood Venipuncture / Unknown 11/28/2024 2:34 PM CDT 11/28/2024 2:34 PM CDT us Edie Lamb MD LAB_1 Final Result [facility] [address] [place], [place] [address] [[email or web address] from Last 3 Months Insurance FULLY INSURED Care Teams Harness Cleaner Relationship Specialty Start Date End Date Needs Pcp, [place] [address] PCP - General 11/27/24
--- OUTSIDE RECORDS SUMMARY | 2024-12-30 11:10 | XMS_ITS | Encounter Summary ---
[facility] Address [address], [place] [address] Care Team Providers Care Stock Shaper Name Role Phone Needs Pcp, Assignment Primary Care Provider [phone] Encounter Details Date Type Department Care Team (Late Contact Info) Description 11/30/2024 Results Follow-Up [place] [facility] Obstetrics/Gynecology [address] [facility] [place] [address] Edie Lamb MD 1515 [facility] 200 [place] [address] Social History Tobacco Use Types Packs/Day Years [...] Appointment [place] 1515 Obstetrics/Gynecology [address] [facility] [place] [address] Jusitn Major MD 1515 [facility] [address] [place] [address] documented as of this encounter Visit Diagnoses Not on filedocumented in this encounter Care Teams Stock Shaper Relationship Specialty Start Date End Date Needs Pcp, [place] [address] PCP - General 11/27/24 documented as of this encounter
--- OUTSIDE RECORDS SUMMARY | 2024-12-30 11:10 | XMS_ITS | Encounter Summary ---
Author Organization [facility] Address [address], [place] [address] Care Team Providers Care Side Laster Name Role Phone Needs Pcp, Assignment Primary Care Provider [phone] Reason for Visit * Reason Comments Appointment Encounter Details Date Type Department Care Team (Late st Contact Info) Description 11/27/2024 Telephone [place] 1515 Obstetrics/Gynecology [facility]5 [facility] [place], [place] [address] Justin Major MD [address] [facility] [address] [place], [place] [phone] Appointment Social History Tobacco Use Types Packs/Day Years Used Date Smoking Tobacco: Never Assessed PHQ-2 Answer Date Recorded PHQ-2 Score 0 11/28/2024 Comments Unknown Sex and Gender Information Value Date Recorded Sex Assigned at Not on file Legal Sex Female 9:33 AM CDT Gender Identity Not on file Sexual Orientation Not on file documented as of this encounter Nursing Notes * Marni Chavez RN - 11/27/2024 9:45 AM CDT 29 y.o. currently at 4+4 weeks. Previous pregnancies were in [place]. D/T frequent miscarriages, previous OB had her start vaginal progesterone suppositories with +HPT. Appointment for early OB consult scheduled. Future Appointments Provider Department Center 11/28/2024 1:30 PM Edie Lamb MD [place] 1934 Obstetrics/Gynecology [place] documented in this encounter Plan of Treatment Upcoming Encounters Date Type Department Care Team (Late st Contact Info) Description 01/02/2025 11:00 AM CDT Appointment [place] 1515 Obstetrics/Gynecology [address] [facility] [place] [address] Justin Major MD [address] [facility] [address] [place] [address] documented as of this encounter Visit Diagnoses Not on filedocumented in this encounter Care Teams Side Laster Relationship Specialty Start Date End Date Needs Pcp, [place] [address] PCP - General 11/27/24 documented as of this encounter
--- OUTSIDE RECORDS SUMMARY | 2024-12-30 11:10 | XMS_ITS | Encounter Summary ---
Author Organization [facility] Address [address], [place] [address] Care Team Providers Care Cartoon Animator Name Role Phone Needs Pcp, Assignment Primary Care Provider [phone] Encounter Details Date Type Department Care Team (Late Contact Info) Description 12/13/2024 Results Follow-Up [place] [facility] Obstetrics/Gynecology [address] [facility] [place] [address] Edie Lamb MD 1515 [facility] 200 [place] [address] Social History Tobacco Use Types Packs/Day Years [...] AM CDT Appointment [place] 1515 Obstetrics/Gynecology [address] [facility] [place] [address] Justin Major MD 15[address] [facility] 200 [place] [address] documented as of this encounter Visit Diagnoses Not on filedocumented in this encounter Care Teams Cartoon Animator Relationship Specialty Start Date End Date Needs Pcp, [place] [address] PCP - General 11/27/24 documented as of this encounter
--- OUTSIDE RECORDS SUMMARY | 2024-12-30 11:10 | XMS_ITS | Clinical Summary ---
Author Organization [facility] Address [address] [place] [address] Care Team Providers Care Sandal Parts Assembler Name Role Phone Elsewhere, Pcp Primary Care Provider Unavailabl e Source Comments Patient records contain information from all sites at [facility]. For routine questions regarding patient records, call [phone] during business hours, M-F 8:00 AM - 5:00 PM Central Time. Record requests for emergency care only can be directed to [phone] at any time.[facility] Allergies Active Allergy Reactions Criticality Noted Date Comments Gluten Diarrhea 05/22/2019 Sulfamethoxazole-Trimethopr im Hives (Reselect Reaction) High 05/08/2014 Medications lisdexamfetamin e (Vyvanse) 60 mg capsule take 1 capsule by mouth once a day in the morning. 11/22/2024 Active PNV 45-iomh-sidwrzm olate-dha 29 mg iron-1 mg -350 mg Take 1 tablet by mouth daily. 06/16/2019 Active Active Problems Comments Yes No known active problems Encounters Date Type Department Care Team Description 11/27/2024 3:40 PM CDT - 11/27/2024 5:03 PM CDT Emergency [facility] [address] [place] [address] Sofya Mckay APRN, C.N.P. Issue Renewal Prescription (Primary Dx) Discharge Disposition: Home or Self Care 11/27/2024 Clinical Communication Department of Obstetrics and Gynecology in [place], [place] [address] [place] [address] Faustina Harris APRN, C.N.P., M.S.N. return phone call (BUSINESS ANALYST PROJECT MANAGER) from Last 3 Months Social History Tobacco Use Types Packs/Day Years [...] on file Sexual Orientation Not on file Last Filed Vital Signs [...] Mass Index - - Plan of Treatment Health Maintenance Due Date Last Done Comments HIV Screening 1995 Hepatitis C Screening 1995 Hepatitis B Vaccines (1 of 3 - 19+ 3-dose series) 01/26/2015 Cervical/Vaginal Cancer Screening 12/06/2021 12/06/2018 COVID-19 Vaccine ( - 2023-2 5 season) 2024 Influenza Vaccine (#1) 2024 05/22/2020 Depression Screening (Annual PHQ-2) 08/09/2024 DTaP,Tdap,and Td Vaccines (2 - Td or Tdap) 11/16/2029 11/17/2019 RSV vaccine - (32-3 6 weeks) or 60+ years (1 - 1-dose 75+ series) 01/26/2071 HPV Vaccines Completed 01/12/2011, 01/28/2009 IPV Vaccines Aged Out No longer eligi ble based on patient's age to complete this topic Pneumococcal vaccine (0-49 years) Aged Out No longer eligible b ased on patient's age to complete this topic Insurance * Guarantor: Concha Franklin Account Type Relation to Patient Date of Phone Billing Address Personal/Family Self 1995 [address] [place] [address] [employer] [place] [id number] Care Teams Sandal Parts Assembler Relationship Specialty Start Date End Date Elsewhere, Pcp PCP - General Internal Medicine 11/27/24
--- OUTSIDE RECORDS SUMMARY | 2024-12-30 11:10 | XMS_ITS | Encounter Summary ---
Author Organization [facility] Address [address] [place] [address] Care Team Providers Care Sap Basis Architect Name Role Phone Needs Pcp, Assignment Primary Care Provider [phone] Reason for Referral * Procedure/Equipment (Routine) - Incomplete Specialty Diagnoses / Procedures Referred By Contac t Referred To Contact Diagnoses Bleeding in early History of miscarriage, currently Bradycardic baseline heart rate Procedures US OB <14 Weeks W EV Single Edie Lamb MD [facility]5 [facility] [address] [place] [address] Phone: tel: fax: Referral ID Status Reason Start Date Expiration Date V isits Requested Visits Authorized [id number] Incomplete 12/27/2024 03/28/2026 1 1 Encounter Details Date Type Department Care Team (Late st Contact Info) Description 12/13/2024 Notes/Orders [place] [facility] Obstetrics/Gynecology [facility]5 [facility]. [place], [place] [id number] Edie Lamb MD [facility]5 [facility] [address] [place], [place] [address] Bleeding in early (Primary Dx); History of miscarriage, currently ; Bradycardic baseline heart rate Social History Tobacco Use Types Packs/Day Years [...] Info) Description 01/02/2025 11:00 AM CDT Appointment [place] [facility] Obstetrics/Gynecology 1515 [facility]. [place] [address] Justin Major MD 1515 [facility] [place] [address] [place] [id number] Scheduled Orders Name Type Priority Associated Diagnoses Orde r Schedule US OB <14 Weeks W EV Single Imaging New Routine Bleeding in early History of miscarriage, currently Bradycardic baseline heart rate Expected: 12/27/2024 (Approximate), Expires: 02/12/2025 documented as of this encounter Visit Diagnoses Diagnosis Bleeding in early - Primary Unspecified hemorrhage in early , unspecified as to episode of care History of miscarriage, currently Bradycardic baseline heart rate documented in this encounter Care Teams Sap Basis Architect Relationship Specialty Start Date End Date Needs Pcp, [place] [address] PCP - General 11/27/24 documented as of this encounter
--- OUTSIDE RECORDS SUMMARY | 2024-12-30 11:11 | XMS_ITS | Encounter Summary ---
Author Organization [facility] Address [address], [place] [address] Care Team Providers Care Parole Director Name Role Phone Needs Pcp, Assignment Primary Care Provider [phone] Reason for Referral * Procedure/Equipment (Routine) - Incomplete Specialty Diagnoses / Procedures Referred By Contac t Referred To Contact Diagnoses Bleeding in early History of miscarriage, currently Procedures US OB <14 Weeks W EV Single Edie Lamb MD [address] [place] [id number] Phone: tel: fax: Referral ID Status Reason Start Date Expiration Date V isits Requested Visits Authorized [id number] Incomplete 12/13/2024 03/14/2026 1 1 Encounter Details Date Type Department Care Team (Late st Contact Info) Description 12/06/2024 Notes/Orders [facility] Obstetrics/Gynecology [address] [place] [address]. [place] [address] Edie Lamb MD [address] [place] [phone] Bleeding in early (Primary Dx); History of [...] Info) Description 01/02/2025 11:00 AM CDT Appointment [facility]5 Obstetrics/Gynecology 1515 [facility]. [place] [address] Justin Major MD 1515 [facility] [address] [place] [address] documented as of this encounter Results * [...] measuring 12 x 8 x [address] [place]-rump length measures 0.3 cm, corresponding to 6w0d [...] measuring 12 x 8 x [address] [place]-rump length measures 0.3 cm, corresponding to 6w0d [...] x 7 mm. us Edie Lamb MD [facility] US Final Result documented in this encounter Visit Diagnoses Diagnosis Bleeding in early - Primary Unspecified hemorrhage in early , unspecified as to episode of care History of miscarriage, currently Bleeding in early Unspecified hemorrhage in early , unspecified as to episode of care History of miscarriage, currently documented in this encounter Care Teams Parole Director Relationship Specialty Start Date End Date Needs Pcp, [place] [address] PCP - General 11/27/24 documented as of this encounter
--- OUTSIDE RECORDS SUMMARY | 2024-12-30 11:11 | XMS_ITS | Encounter Summary ---
Author Organization [facility] Address [address], [place] [address] Care Team Providers Care Floor Installer Name Role Phone Needs Pcp, Assignment Primary Care Provider [phone] Encounter Details Date Type Department Care Team (Late Contact Info) Description 11/30/2024 Notes/Orders [place] [facility]5 Obstetrics/Gynecology [facility]5 [facility]. [place] [address] Edie Lamb MD [facility]8 [facility] [address] [place] [address] Bleeding in early (Primary Dx); History of [...] AM CDT Appointment [place] [facility]15 Obstetrics/Gynecology 1515 [facility] [place] [address] Justin Major MD 1515 [facility] [address] [place] [address] documented as of this encounter Results * (ABNORMAL) HCG, Quantitative, Serum (12/06/2024 7:37 AM CDT) HCG, Quantitative 1,940(H) <=4 mIU/mL 12/06/2024 6:21 PM CDT [facility] Blood Venipuncture / Unknown 12/06/2024 7:37 AM CDT 12/06/2024 8:29 AM CDT Narrative [facility] - 12/06/2024 6:21 PM CDT Expected ranges Negative: <5 mIU/mL Indeterminate: 5-25 mIU/mL Positive: >25 mIU/mL Suggest repeat testing of indeterminate result in 72 hours. us Edie Lamb MD LAB_1 Final Result [facility] [address] [place] [address], [facility] documented in this encounter Visit Diagnoses Diagnosis Bleeding in early - Primary Unspecified hemorrhage in early , unspecified as to episode of care History of miscarriage, currently documented in this encounter Care Teams Floor Installer Relationship Specialty Start Date End Date Needs Pcp, [place] [address] PCP - General 11/27/24 documented as of this encounter
--- OUTSIDE RECORDS SUMMARY | 2024-12-30 11:11 | XMS_ITS | Encounter Summary ---
Author Organization [facility] Address [address], [place] [address] Care Team Providers Care Piercer Name Role Phone Needs Pcp, Assignment Primary Care Provider [phone] Encounter Details Date Type Department Care Team (Late Contact Info) Description 12/06/2024 Results Follow-Up [place] [facility]5 Obstetrics/Gynecology [address] [facility] [place] [address] Edie Lamb MD 1515 [facility] [address] [place] [address] Social History Tobacco Use Types Packs/Day Years [...] AM CDT Appointment [place] [facility]15 Obstetrics/Gynecology 1515 [facility] [place] [address] Justin Major MD 1515 [facility] [address] [place] [address] documented as of this encounter Visit Diagnoses Not on filedocumented in this encounter Care Teams Piercer Relationship Specialty Start Date End Date Needs Pcp, [place] [address] PCP - General 11/27/24 documented as of this encounter
[2024-12-30 12:31] VITALS: BP 109/75; PULSE 76; RESP 18; TEMP 36.4
== END 2024-12-30 12:32 | disposition home or self-care (01) ==
PROVIDERS: Emergency Provider Emergency Medicine Emergency Medical Services; PCP Obstetrics & Gynecology
DX: O46.8X1 Other antepartum hemorrhage, first trimester (principal); Z3A.09 9 weeks gestation of pregnancy
CPT/HCPCS: 76817; 99283; 99284